=== PATIENT | female | born 1945 | race Caucasian/White ===

== ENCOUNTER 2017-06-20 01:26 | Inpatient (IN) | payer MEDICARE ==
[~2017-06-20] VITALS: Ht 157.5 cm; Wt 84.6 kg
--- NOTE | ~2017-06-20 | EC ---
PATIENT:MAYA DECKER DATE OF SERVICE: 06/20/17 SEX: F MEDICAL RECORD: [id number] DATE OF : [birth year] LOCATION:[facility] AGE OF PATIENT: 71 ADMISSION DATE: 06/20/17 REFERRING PHYSICIAN: INTERPRETING PHYSICIAN: BRITTANY ZAVALA MD ECHOCARDIOGRAM REPORT ECHO CHARGES 4 ECHO COMPLETE CLINICAL DIAGNOSIS: LUNG MASS HX OF CAD/STENT ECHOCARDIOGRAPHIC MEASUREMENTS (adult normal given) AC root (d.<3.7cm) 3.4 cm LV Septum d (<1.2 cm> 1.3 cm Valve Excursion 2.0 cm LV Septum (systole) 1.5 cm Left Atria (s.<4.0cm> 3.2 cm LVPW d(<1.2cm) 1.4 cm RV (d.<2.3cm) 4.3 cm LVPW (sytole) 1.7 cm LV diastole(<5.6CM) 4.8 cm MV E-F(>70mm/sec) cm LV systole 3.7 cm LVOT Diameter 2.1 cm MV exc.(>10mm) cm Est.ejection fraction (50-75%) % Pericardial Effusion N DOPPLER: LVIT cm/sec A 112 cm/sec E 60.0 cm/sec LA cm/sec RVSP 39 mmHg LVOT 128 cm/sec AOP1/2T m/s Asc. Ao 161 cm/sec RVOT 111 cm/sec RA cm/sec PA 136 cm/sec AV Gradient Peak 10.39mmHg AV Mean 4.20 mmHg AV Area 2.6 cm MV Gradient Peak 5.52 mmHg MV Mean 2.23 mmHg MV Area cm COMMENTS: Provisioning Specialist: Jorge ASHLEY Car Wrecker: Kevin Zavala TAPE# PACS DATE OF SERVICE: 06/20/2017 FINDINGS: 1. Left ventricular chamber size is within normal limits. Left ventricular systolic function is normal. Overall ejection fraction is estimated at 65%. 2. Left atrium is within normal limits at 3.2 cm. Right atrium and right ventricle chamber sizes are mildly dilated. 3. Valvular structures have normal structure and motion. 4. Doppler interrogation reveals mild tricuspid regurgitation. No other valvular insufficiency or stenosis. Pulmonary systolic pressure is normal, ECHOCARDIOGRAM REPORT [id number] MAYA DECKER estimated at 39 mmHg. 5. No evidence of pericardial effusion or left ventricular thrombus. TRANSINT:[id number] Voice Confirmation ID: [id number] DOCUMENT ID: [id number] BRITTANY ZAVALA MD at 1025 CC: [id number] DICTATION DATE: 06/21/17 1121 MORNING NANNY: 06/21/17 1451 ADM IN [facility] [address] [id number]
--- NOTE | ~2017-06-20 | OP ---
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 POSTOPERATIVE DIAGNOSIS: Right cerebellar metastatic lung tumor. PROCEDURE: Right suboccipital craniectomy with stereotactic navigation and intraoperative ultrasound for monitoring and resection. DESCRIPTION AND TECHNIQUE: After induction of general endotracheal anesthesia, the patient was placed in Fontana head pins and rolled prone on chest and hip rolls. A patient tracker was attached to the Cicero head frame. Registration of the fiducial markers took place with a Cloubrain navigation system. The scalp flap and skull flap were planned using Cloubrain navigation. A longitudinal skin incision was carried out approximately 3 cm off the midline on the right. Salazar clips were applied to the scalp for hemostasis. Next, 2 akvin holes were created over the cerebellar convexity, these were connected with a Midas-Marco drill. The dura was opened in a cruciate manner with bipolar cautery and #11 blade. Ultrasound confirmed the location of the tumor as well as Eliezer navigation. Dissection took place deep to the PA with bipolar cautery and suction until the marked areas on the navigation were encountered. There was necrotic brain around the tumor, this was sent to pathology for diagnosis as well as the tumor itself in a piecemeal fashion. There appeared to be a gross total resection of the tumor at the conclusion of the surgery. Meticulous hemostasis was maintained throughout the wound. The wound was irrigated with copious amounts of lukewarm saline irrigant solution. The dura was reapproximated with interrupted 4-0 Nurolon suture. The skull flap was replaced with titanium plates and screws. Galea was reapproximated with interrupted 2-0 Vicryl suture. Skin was closed with whitney. A sterile dressing was applied to the wound. The patient was awakened in good condition and taken to recovery. All counts were reported as correct. Estimated blood loss was 30 cc. TRANSINT:[id number] Voice Confirmation ID: [id number] DOCUMENT ID: [id number] ANGELO JENSEN MD at 1318 CC: [id number] DICTATION DATE: 06/29/17 0907 DIRECTIONAL SURVEY DRAFTER: 06/29/17 1352 DIS IN 06/29/17 [facility] [address] [facility] [place] [address]
[2017-06-20] MEDS ORDERED: ACETAMINOPHEN325 MG PO (01:29)
[2017-06-20] MEDS ORDERED: MERREM 1 GM/NS 11 G1 IV (01:30)
[2017-06-20] MEDS ORDERED: ULTRAM50 MG PO (01:31)
[2017-06-20] MEDS ORDERED: LIPITOR10 MG PO (01:32)
[2017-06-20] MEDS ORDERED: LOVENOX40 MG/0.4 SC (01:33)
[2017-06-20] MEDS ORDERED: IPRAT-ALBUT 0.5-3 ML UPD (01:34)
[2017-06-20] MEDS ORDERED: SOLU-MEDRO40 MG/1 M1 IV (01:39)
[2017-06-20] MEDS ORDERED: NICODERM C1 PATCH .1 TRANSDERM (01:40)
[2017-06-20] MEDS ORDERED: ONDANSETRON4 MG/2 M3 IV (01:41)
[2017-06-20] MEDS ORDERED: STOOL SOFTENER240 MG PO (01:42)
[2017-06-20] MEDS ORDERED: LEVOFLOXAC750 MG/150 IV (01:43)
[2017-06-20 01:54] VITALS: BP 142/68; BMI 33.0
[2017-06-20] MEDS ORDERED: PREDNISONE20 MG PO (02:53)
[2017-06-20] MEDS ORDERED: IBUPROFEN800 MG PO (02:54)
[2017-06-20] MEDS ORDERED: ALBUTEROL2.5 MG/3 M INH (02:56)
[2017-06-20] MEDS ORDERED: COREG 3.1253.125 MG PO (02:56)
[2017-06-20] MEDS ORDERED: CLARITIN 10 MG10 MG PO (02:57)
[2017-06-20 04:55] LABS: BASOPHILS 0.1 % (0-2); EOSINOPHILS 0 % (0-7); HEMATOCRIT 35.7 % (36.0-48.0); HEMOGLOBIN 10.9 g/dL (12-16); IMMATURE GRANULOCYTES 0.5 % (0-5); LYMPHOCYTES 13.6 % (15-50); MCH 29.5 pg (26.0-34.0); MCHC 30.5 g/dL (31.0-37.0); MCV 96.7 fL (80.0-100.0); MEAN PLATELET VOLUME 9.8 fL (7.4-10.4); MONOCYTES 5.5 % (2-11); NEUTROPHILS 80.3 % (40-80); PLATELET COUNT 220 10x3/uL (130-400); RBC 3.69 10x6/uL (4.00-5.40); RDW 12.7 % (11.5-14.5); WBC 13.2 10x3/uL (4.8-10.8)
[2017-06-20 05:13] LABS: ALBUMIN 2.3 g/dL (3.4-5.0); ALKALINE PHOSPHATASE 52 U/L (46-116); ALT (SGPT) 21 U/L (10-68); CALC OSMOLALITY 285 mosm/kg (275-300); CALCIUM 9.5 mg/dL (8.5-10.1); CARBON DIOXIDE 33.6 mmol/L (21.0-32.0); CHLORIDE - SERUM 105 mmol/L (98-107); CREATININE - SERUM 0.6 mg/dL (0.6-1.3); GLUCOSE 150 mg/dL (74-106); POTASSIUM - SERUM 3.9 mmol/L (3.5-5.1); PROTEIN - SERUM 5.6 g/dL (6.4-8.2); SODIUM 142 mmol/L (136-145); UREA NITROGEN 13 mg/dL (7-18); eGFR NON AFRICAN AMERICAN > 90 mL/min (90-120)
[2017-06-20 08:16] VITALS: BP 132/88
[2017-06-20 12:22] VITALS: BP 138/94
[2017-06-20 16:13] VITALS: BP 147/66
[2017-06-20 20:00] VITALS: BP 105/54
[2017-06-20 23:44] VITALS: BP 129/63
[2017-06-21 04:00] VITALS: BP 128/52
[2017-06-21 08:18] VITALS: BP 133/48
[2017-06-21 12:18] VITALS: BP 113/63
[2017-06-21 15:29] VITALS: BP 117/70
[2017-06-21 21:31] VITALS: BP 129/57
[2017-06-22 07:46] VITALS: BP 143/75
[2017-06-22 08:05] VITALS: BP 132/82
[2017-06-22 09:48] LABS: HEMATOCRIT 41.5 % (36.0-48.0); HEMOGLOBIN 13.1 g/dL (12-16); LYMPHOCYTES 16.3 % (15-50); MCH 29.8 pg (26.0-34.0); MCHC 31.6 g/dL (31.0-37.0); MCV 94.5 fL (80.0-100.0); MEAN PLATELET VOLUME 9.6 fL (7.4-10.4); NEUTROPHILS 79.9 % (40-80); PLATELET COUNT 246 10x3/uL (130-400); RBC 4.39 10x6/uL (4.00-5.40); RDW 12.3 % (11.5-14.5); WBC 10.3 10x3/uL (4.8-10.8)
[2017-06-22 09:53] LABS: ALBUMIN 2.7 g/dL (3.4-5.0); ALKALINE PHOSPHATASE 60 U/L (46-116); ALT (SGPT) 63 U/L (10-68); CALC OSMOLALITY 287 mosm/kg (275-300); CALCIUM 9.6 mg/dL (8.5-10.1); CARBON DIOXIDE 34.5 mmol/L (21.0-32.0); CHLORIDE - SERUM 104 mmol/L (98-107); CREATININE - SERUM 0.7 mg/dL (0.6-1.3); GLUCOSE 165 mg/dL (74-106); POTASSIUM - SERUM 4.1 mmol/L (3.5-5.1); PROTEIN - SERUM 6.2 g/dL (6.4-8.2); SODIUM 142 mmol/L (136-145); UREA NITROGEN 14 mg/dL (7-18); eGFR NON AFRICAN AMERICAN 88 mL/min (90-120)
[2017-06-22 12:10] VITALS: BP 122/56
[2017-06-22 13:50] LABS: % SATURATION 24 % (15-55); IRON 75 ug/dl (35-150); TOTAL IRON BIND CAPACITY 306 ug/dl (260-445); UNSAT IRON BIND CAPACITY 231 ug/dl (150-375)
[2017-06-22 14:11] VITALS: Ht 157.5 cm; Wt 84.6 kg
[2017-06-22 16:17] VITALS: BP 108/60
[2017-06-22 22:34] VITALS: BP 134/59
[2017-06-23] VITALS (12 sets, daily range): BP systolic 137–157; BP diastolic 68–86
[2017-06-23 05:49] LABS: BASOPHILS 0.1 % (0-2); EOSINOPHILS 0 % (0-7); HEMATOCRIT 41.2 % (36.0-48.0); HEMOGLOBIN 12.6 g/dL (12-16); LYMPHOCYTES 16.9 % (15-50); MCH 29.5 pg (26.0-34.0); MCHC 30.6 g/dL (31.0-37.0); MEAN PLATELET VOLUME 10.1 fL (7.4-10.4); MONOCYTES 5.6 % (2-11); NEUTROPHILS 76.4 % (40-80); PLATELET COUNT 254 10x3/uL (130-400); RBC 4.27 10x6/uL (4.00-5.40); RDW 12.7 % (11.5-14.5); WBC 11.7 10x3/uL (4.8-10.8)
[2017-06-23 05:56] LABS: MCV 96.5 fL (80.0-100.0)
[2017-06-23 06:12] LABS: ALBUMIN 2.4 g/dL (3.4-5.0); ALKALINE PHOSPHATASE 54 U/L (46-116); BILIRUBIN - TOTAL 0.35 mg/dL (0.2-1.3); CALC OSMOLALITY 281 mosm/kg (275-300); CALCIUM 9.2 mg/dL (8.5-10.1); CARBON DIOXIDE 31.9 mmol/L (21.0-32.0); CHLORIDE - SERUM 104 mmol/L (98-107); CREATININE - SERUM 0.6 mg/dL (0.6-1.3); GLUCOSE 140 mg/dL (74-106); POTASSIUM - SERUM 4.1 mmol/L (3.5-5.1); PROTEIN - SERUM 5.8 g/dL (6.4-8.2); SODIUM 140 mmol/L (136-145); UREA NITROGEN 14 mg/dL (7-18); eGFR NON AFRICAN AMERICAN > 90 mL/min (90-120)
[2017-06-23 06:13] LABS: ALT (SGPT) 120 U/L (10-68)
[2017-06-24] VITALS (13 sets, daily range): BP systolic 128–170; BP diastolic 58–99
[2017-06-24 04:34] LABS: BASOPHILS 0 % (0-2); EOSINOPHILS 0 % (0-7); HEMATOCRIT 39.8 % (36.0-48.0); HEMOGLOBIN 12.4 g/dL (12-16); IMMATURE GRANULOCYTES 0.8 % (0-5); LYMPHOCYTES 9.1 % (15-50); MCH 29.5 pg (26.0-34.0); MCHC 31.2 g/dL (31.0-37.0); MCV 94.8 fL (80.0-100.0); MEAN PLATELET VOLUME 9.8 fL (7.4-10.4); MONOCYTES 4.8 % (2-11); NEUTROPHILS 85.3 % (40-80); PLATELET COUNT 256 10x3/uL (130-400); RDW 12.5 % (11.5-14.5)
[2017-06-24 04:57] LABS: ALBUMIN 2.4 g/dL (3.4-5.0); ALKALINE PHOSPHATASE 54 U/L (46-116); ALT (SGPT) 119 U/L (10-68); BILIRUBIN - TOTAL 0.43 mg/dL (0.2-1.3); CALC OSMOLALITY 282 mosm/kg (275-300); CALCIUM 9.1 mg/dL (8.5-10.1); CARBON DIOXIDE 35.5 mmol/L (21.0-32.0); CHLORIDE - SERUM 102 mmol/L (98-107); CREATININE - SERUM 0.5 mg/dL (0.6-1.3); GLUCOSE 153 mg/dL (74-106); PROTEIN - SERUM 5.6 g/dL (6.4-8.2); SODIUM 140 mmol/L (136-145); UREA NITROGEN 15 mg/dL (7-18); eGFR NON AFRICAN AMERICAN > 90 mL/min (90-120)
[2017-06-25 02:03] VITALS: BP 143/79
[2017-06-25 05:23] LABS: BASOPHILS 0.1 % (0-2); EOSINOPHILS 0.1 % (0-7); HEMATOCRIT 39.4 % (36.0-48.0); HEMOGLOBIN 12.3 g/dL (12-16); IMMATURE GRANULOCYTES 0.9 % (0-5); LYMPHOCYTES 14.8 % (15-50); MCH 29.8 pg (26.0-34.0); MCHC 31.2 g/dL (31.0-37.0); MCV 95.4 fL (80.0-100.0); MEAN PLATELET VOLUME 10.1 fL (7.4-10.4); MONOCYTES 10.2 % (2-11); NEUTROPHILS 73.9 % (40-80); PLATELET COUNT 242 10x3/uL (130-400); RBC 4.13 10x6/uL (4.00-5.40); RDW 12.7 % (11.5-14.5); WBC 15.8 10x3/uL (4.8-10.8)
[2017-06-25 05:48] LABS: ALBUMIN 2.5 g/dL (3.4-5.0); ALKALINE PHOSPHATASE 56 U/L (46-116); CALCIUM 8.8 mg/dL (8.5-10.1); CARBON DIOXIDE 37.2 mmol/L (21.0-32.0); CHLORIDE - SERUM 105 mmol/L (98-107); CREATININE - SERUM 0.5 mg/dL (0.6-1.3); POTASSIUM - SERUM 3.6 mmol/L (3.5-5.1); PROTEIN - SERUM 5.6 g/dL (6.4-8.2); SODIUM 143 mmol/L (136-145); UREA NITROGEN 15 mg/dL (7-18); eGFR NON AFRICAN AMERICAN > 90 mL/min (90-120)
[2017-06-25 05:50] LABS: ALT (SGPT) 83 U/L (10-68); CALC OSMOLALITY 285 mosm/kg (275-300); GLUCOSE 104 mg/dL (74-106)
[2017-06-25 06:03] VITALS: BP 143/79
[2017-06-25 10:42] VITALS: BP 164/63
[2017-06-25 11:00] VITALS: BP 116/65
[2017-06-25 16:23] VITALS: BP 145/64
[2017-06-25 20:00] VITALS: BP 139/69
[2017-06-26 04:00] VITALS: BP 149/73
[2017-06-26 05:56] LABS: BASOPHILS 0.1 % (0-2); EOSINOPHILS 0.5 % (0-7); HEMATOCRIT 40.4 % (36.0-48.0); HEMOGLOBIN 12.5 g/dL (12-16); IMMATURE GRANULOCYTES 0.7 % (0-5); LYMPHOCYTES 18.4 % (15-50); MCH 29.6 pg (26.0-34.0); MCHC 30.9 g/dL (31.0-37.0); MCV 95.5 fL (80.0-100.0); MONOCYTES 8.3 % (2-11); PLATELET COUNT 256 10x3/uL (130-400); RBC 4.23 10x6/uL (4.00-5.40); RDW 12.8 % (11.5-14.5); WBC 13.3 10x3/uL (4.8-10.8)
[2017-06-26 06:13] LABS: ALBUMIN 2.6 g/dL (3.4-5.0); ALKALINE PHOSPHATASE 59 U/L (46-116); ALT (SGPT) 66 U/L (10-68); CALC OSMOLALITY 279 mosm/kg (275-300); CALCIUM 8.7 mg/dL (8.5-10.1); CARBON DIOXIDE 35.9 mmol/L (21.0-32.0); CHLORIDE - SERUM 103 mmol/L (98-107); CREATININE - SERUM 0.4 mg/dL (0.6-1.3); GLUCOSE 87 mg/dL (74-106); POTASSIUM - SERUM 3.4 mmol/L (3.5-5.1); PROTEIN - SERUM 5.9 g/dL (6.4-8.2); SODIUM 142 mmol/L (136-145); eGFR NON AFRICAN AMERICAN > 90 mL/min (90-120)
[2017-06-26 06:21] LABS: UREA NITROGEN 8 mg/dL (7-18)
[2017-06-26 08:13] VITALS: BP 142/80
[2017-06-26 09:18] LABS: IMMUNOGLOBULIN E 140 IU/mL (0-100)
[2017-06-26 12:13] VITALS: BP 104/71
[2017-06-26 17:20] VITALS: BP 114/64
[2017-06-26 20:10] VITALS: BP 128/76
[2017-06-26 23:43] VITALS: BP 116/48
[2017-06-27 04:17] VITALS: BP 145/73
[2017-06-27 07:06] LABS: BASOPHILS 0.1 % (0-2); EOSINOPHILS 2.1 % (0-7); HEMATOCRIT 37.5 % (36.0-48.0); HEMOGLOBIN 11.6 g/dL (12-16); IMMATURE GRANULOCYTES 0.7 % (0-5); LYMPHOCYTES 24.5 % (15-50); MCH 29.6 pg (26.0-34.0); MCHC 30.9 g/dL (31.0-37.0); MCV 95.7 fL (80.0-100.0); MEAN PLATELET VOLUME 9.8 fL (7.4-10.4); MONOCYTES 7.9 % (2-11); NEUTROPHILS 64.7 % (40-80); PLATELET COUNT 207 10x3/uL (130-400); RBC 3.92 10x6/uL (4.00-5.40); RDW 13.1 % (11.5-14.5)
[2017-06-27 07:10] LABS: WBC 9.4 10x3/uL (4.8-10.8)
[2017-06-27 07:21] LABS: ALBUMIN 2.5 g/dL (3.4-5.0); ALKALINE PHOSPHATASE 54 U/L (46-116); ALT (SGPT) 51 U/L (10-68); CALC OSMOLALITY 284 mosm/kg (275-300); CALCIUM 8.9 mg/dL (8.5-10.1); CARBON DIOXIDE 35.6 mmol/L (21.0-32.0); CHLORIDE - SERUM 105 mmol/L (98-107); CREATININE - SERUM 0.4 mg/dL (0.6-1.3); GLUCOSE 98 mg/dL (74-106); POTASSIUM - SERUM 3.4 mmol/L (3.5-5.1); PROTEIN - SERUM 5.7 g/dL (6.4-8.2); SODIUM 144 mmol/L (136-145); UREA NITROGEN 8 mg/dL (7-18); eGFR NON AFRICAN AMERICAN > 90 mL/min (90-120)
[2017-06-27 09:41] VITALS: BP 120/78
[2017-06-27 12:14] VITALS: BP 116/62
[2017-06-27 19:57] VITALS: BP 110/63
[2017-06-28] VITALS: BP 101/54
[2017-06-28 06:01] LABS: BASOPHILS 0 % (0-2); EOSINOPHILS 2.3 % (0-7); HEMATOCRIT 39.7 % (36.0-48.0); HEMOGLOBIN 12.2 g/dL (12-16); IMMATURE GRANULOCYTES 0.5 % (0-5); LYMPHOCYTES 24.9 % (15-50); MCH 29.8 pg (26.0-34.0); MCHC 30.7 g/dL (31.0-37.0); MCV 96.8 fL (80.0-100.0); MONOCYTES 6.9 % (2-11); NEUTROPHILS 65.4 % (40-80); PLATELET COUNT 251 10x3/uL (130-400); RDW 13.1 % (11.5-14.5); WBC 11.3 10x3/uL (4.8-10.8)
[2017-06-28 06:18] LABS: ALBUMIN 2.8 g/dL (3.4-5.0); ALKALINE PHOSPHATASE 59 U/L (46-116); ALT (SGPT) 49 U/L (10-68); BILIRUBIN - TOTAL 0.49 mg/dL (0.2-1.3); CALC OSMOLALITY 280 mosm/kg (275-300); CHLORIDE - SERUM 104 mmol/L (98-107); GLUCOSE 98 mg/dL (74-106); POTASSIUM - SERUM 3.3 mmol/L (3.5-5.1); PROTEIN - SERUM 6.3 g/dL (6.4-8.2); SODIUM 142 mmol/L (136-145); UREA NITROGEN 8 mg/dL (7-18)
[2017-06-28 06:27] LABS: CREATININE - SERUM 0.6 mg/dL (0.6-1.3); eGFR NON AFRICAN AMERICAN > 90 mL/min (90-120)
[2017-06-28 10:28] VITALS: BP 137/88
[2017-06-28 21:35] VITALS: BP 107/47
[2017-06-28 23:22] VITALS: BP 143/68
[2017-06-29 04:52] VITALS: BP 146/68
[2017-06-29 05:16] LABS: BASOPHILS 0.1 % (0-2); EOSINOPHILS 1.9 % (0-7); HEMATOCRIT 38.5 % (36.0-48.0); HEMOGLOBIN 11.9 g/dL (12-16); IMMATURE GRANULOCYTES 0.4 % (0-5); LYMPHOCYTES 25.7 % (15-50); MCH 29.5 pg (26.0-34.0); MCHC 30.9 g/dL (31.0-37.0); MCV 95.5 fL (80.0-100.0); MEAN PLATELET VOLUME 9.9 fL (7.4-10.4); NEUTROPHILS 61.9 % (40-80); PLATELET COUNT 216 10x3/uL (130-400); RBC 4.03 10x6/uL (4.00-5.40); WBC 9.6 10x3/uL (4.8-10.8)
[2017-06-29 05:37] LABS: ALBUMIN 2.8 g/dL (3.4-5.0); ALKALINE PHOSPHATASE 58 U/L (46-116); ALT (SGPT) 42 U/L (10-68); BILIRUBIN - TOTAL 0.45 mg/dL (0.2-1.3); CALC OSMOLALITY 284 mosm/kg (275-300); CALCIUM 9.1 mg/dL (8.5-10.1); CARBON DIOXIDE 33.6 mmol/L (21.0-32.0); CHLORIDE - SERUM 103 mmol/L (98-107); CREATININE - SERUM 0.5 mg/dL (0.6-1.3); GLUCOSE 98 mg/dL (74-106); POTASSIUM - SERUM 3.2 mmol/L (3.5-5.1); PROTEIN - SERUM 6.2 g/dL (6.4-8.2); SODIUM 144 mmol/L (136-145); UREA NITROGEN 7 mg/dL (7-18); eGFR NON AFRICAN AMERICAN > 90 mL/min (90-120)
[2017-06-29 09:22] VITALS: BP 132/78
[2017-06-29] MEDS ORDERED: TESSALON PERLE100 MG PO (12:25)
[2017-06-29] MEDS ORDERED: SINGULAIR10 MG PO (12:25)
[2017-06-29] MEDS ORDERED: DALIRESP500 MCG PO (12:25)
[2017-06-29] MEDS ORDERED: PULMICORT0.5 MG/21 UPD (12:26)
== END 2017-06-29 14:37 | disposition home health service (06) | DRG 25 ==
LOC: D.MS 01:26 → D.CVICU 06-23 12:34 → D.MS 06-24 12:18
PROVIDERS: Emergency Medicine; Family Medicine; Internal Medicine Hematology & Oncology; Internal Medicine Nephrology; Internal Medicine Pulmonary Disease; Neurological Surgery
PROC: 00B00ZZ Excision of Brain, Open Approach (ICD-10-PCS; principal; 2017-06-23 07:30)
DX: C79.31 Secondary malignant neoplasm of brain (principal); J96.21 Acute and chronic respiratory failure with hypoxia; G93.6 Cerebral edema; J18.9 Pneumonia, unspecified organism; C34.90 Malignant neoplasm of unspecified part of unspecified bronchus or lung; I67.89 Other cerebrovascular disease; M80.88XA Other osteoporosis with current pathological fracture, vertebra(e), initial encounter for fracture; J44.1 Chronic obstructive pulmonary disease with (acute) exacerbation; J44.0 Chronic obstructive pulmonary disease with (acute) lower respiratory infection; F17.203 Nicotine dependence unspecified, with withdrawal; D64.9 Anemia, unspecified; I10 Essential (primary) hypertension; Z91.81 History of falling; Z99.81 Dependence on supplemental oxygen; E78.5 Hyperlipidemia, unspecified; M19.90 Unspecified osteoarthritis, unspecified site; G47.33 Obstructive sleep apnea (adult) (pediatric); Z91.19 Patient's noncompliance with other medical treatment and regimen; I25.10 Atherosclerotic heart disease of native coronary artery without angina pectoris; J30.9 Allergic rhinitis, unspecified; E88.09 Other disorders of plasma-protein metabolism, not elsewhere classified